=== PATIENT | female | born 1980 | race Caucasian/White ===

== ENCOUNTER 2016-11-21 16:40 | Emergency (ER) | payer OTHER ==
[2016-11-21 17:21] VITALS: BP 109/65; PULSE 74; TEMP 98.1; BMI 40.6
--- NOTE | 2016-11-21 18:02 | PDOC ---
History of Present Illness - General Chief Complaint: Pain Stated Complaint: RT HIP PAIN/SWOLLEN Time Seen by Provider: 11/21/16 17:37 History Source: Patient Exam Limitations: No Limitations - History of Present Illness Initial Comments: 11/21/16 17:59 36-year-old female presents to the ED with complaints of intermittent right hip pain worsened with ambulation and sitting. Patient states pain began 2 weeks ago and gradually has worsened. Patient denies. Injury to the affected area, radiation of pain, history of back pain, or complaints of abdominal pain. Patient denies rash of the affected area and denies any swelling. Occurred: reports: other (2 weeks) Severity: reports: mild Pain Location: reports: pelvis (rt hip) Associated Symptoms (Fall): denies symptoms Past History - Past Medical History Allergies/Adverse Reactions: Allergies Allergy/AdvReac Type Severity Reaction Status Date / Time No Known Allergies Allergy Verified 11/21/16 17:20 Home Medications: Ambulatory Orders Cyclobenzaprine HCl [Flexeril -] 10 mg PO TID #21 tablet 10/14/15 Enalapril Maleate [Vasotec -] 10 mg PO ASDIR 10/14/15 Hydroxyzine Pamoate [Vistaril -] 25 cap PO ASDIR 10/14/15 Montelukast Na [Singulair -] 10 tablet PO ASDIR 10/14/15 Albuterol 0.083% Nebulizer Terri [Ventolin 0.083% Nebulizer Soln -] 1 neb NEB Q6H #30 vial 01/04/16 Asthma: Yes HTN: Yes - Surgical History Cholecystectomy: Yes Gastric Stapling: No (GASTRIC SLEEEVE) - Psycho/Social/Smoking Cessation Hx Anxiety: No Suicidal Ideation: No Smoking History: Never smoked Hx Alcohol Use: No Drug/Substance Use Hx: No Substance Use Type: None Patient Lives Alone: No Lives with/in: spouse/SO Trauma Specific PMHX - Complaint Specific PMHX Back Injury: No Review of Systems - Review of Systems Able to Perform ROS?: Yes ABD/GI: No: Symptoms Reported : No: Symptoms Reported Musculoskeletal: Yes: Joint Pain (right hip). No: Back Pain, Joint Swelling, Muscle Weakness, Joint Stiffness Integumentary: No: Symptoms Reported Neurological: No: Symptoms reported *Physical Exam - Vital Signs Last Vital Signs Temp Pulse Resp BP Pulse Ox 98.1 F 74 20 109/65 100 11/21/16 17:18 11/21/16 17:18 11/21/16 17:18 11/21/16 17:18 11/21/16 17:18 - Physical Exam General Appearance: Yes: Nourished, Appropriately Dressed. No: Apparent Distress Vascular Pulses: Dorsalis-Pedis (R): 2+ Extremity: positive: Normal Capillary Refill, Normal Inspection, Normal Range of Motion. negative: Tender (over right posterior/ lateral aspect of iliac crest ) Integumentary: positive: Normal Color, Warm, Moist Neurologic: positive: Normal Mood/Affect, Motor Strength 5/5 (ambulatory) ED Treatment Course - RADIOLOGY Radiology Studies Ordered: Category Date Time Status HIP & PELVIS-RIGHT [RAD] Stat Radiology 11/21/16 17:46 Ordered Medical Decision Making - Medical Decision Making 11/21/16 18:02 Patient complains of intermittent right hip pain worsened with ambulation and sitting. Patient on exam had tenderness to the lateral aspect of right iliac crest. Patient had no rash, deformity, or swelling to the area. Patient ordered for x-ray and offered Motrin but states only wants the x-ray. 11/21/16 18:49 X-ray negative for acute findings. Patient with discharged home and told to take Motrin and follow up with her PCP. *DC/Admit/Observation/Transfer Diagnosis at time of Disposition: Pain of right hip - Discharge Dispostion Disposition: HOME Condition at time of disposition: Good - Referrals Referrals: Nicole Biggs MD [Primary Care Provider] - Sudhir Castro MD [Staff Physician] - - Patient Instructions Printed Discharge Instructions: Help for Hip Pain Additional Instructions: Although your x-ray showed no acute findings I recommend taking Motrin applying heat to the affected area and if pain continues greater than 1 week to follow up with referred orthopedist.
== END 2016-11-21 19:02 | disposition home or self-care (01) ==
LOC: JER 16:40 → JERFT 16:40
DX: M25.551 Pain in right hip (principal); Z98.84 Bariatric surgery status; J45.909 Unspecified asthma, uncomplicated; I10 Essential (primary) hypertension
CPT/HCPCS: 73523-TC; 99281-25

== ENCOUNTER 2017-01-06 13:48 | Emergency (ER) | payer OTHER ==
[2017-01-06 13:53] VITALS: BP 128/67; PULSE 73; TEMP 98.4; BMI 38.4
--- NOTE | 2017-01-06 14:14 | PDOC ---
History of Present Illness - General Chief Complaint: Cold Symptoms Stated Complaint: Asthma/COUGH Time Seen by Provider: 01/06/17 14:00 History Source: Patient Exam Limitations: No Limitations - History of Present Illness Initial Comments: CHIEF COMPLAINT: HISTORY OF PRESENT ILLNESS: Vital signs on arrival are within normal limits. REVIEW OF SYSTEMS: GENERAL/CONSTITUTIONAL: Subjective fever/chills. No weakness. No weight change. HEAD, EYES, EARS, NOSE AND THROAT: No change in vision. No ear pain or discharge. No sore throat. CARDIOVASCULAR: No chest pain or shortness of breath. RESPIRATORY: No cough, wheezing, or hemoptysis. GASTROINTESTINAL: See history of present illness. GENITOURINARY: No dysuria, frequency, or change in urination. MUSCULOSKELETAL: No joint or muscle swelling or pain. No neck or back pain. SKIN: No rash or easy bruising. NEUROLOGIC: No headache, vertigo, loss of consciousness, or loss of sensation. PHYSICAL EXAM: GENERAL: The patient is awake, alert, and fully oriented, in no acute distress. HEAD: Normal with no signs of trauma. ENT: Pupils equal, round and reactive to light, extraocular movements intact, sclera anicteric, conjunctiva clear. Neck supple. LUNGS: Clear to auscultation bilaterally. Normal excursion. No respiratory distress or use of accessory muscles. CV: RRR, S1/S2, no MRG. Cap refill < 2 sec. ABDOMEN: Soft, non-distended, non-tender even to deep palpation, no hepatomegaly or splenomegaly, no masses. EXTREMITIES: Normal range of motion, no edema. NEUROLOGICAL: Normal speech, normal gait. CN II-XII grossly intact. PSYCH: Normal mood, normal affect. SKIN: Warm, dry, normal turgor, no rashes or lesions noted. Past History - Past Medical History Allergies/Adverse Reactions: Allergies Allergy/AdvReac Type Severity Reaction Status Date / Time No Known Allergies Allergy Verified 01/06/17 13:53 Home Medications: Ambulatory Orders Enalapril Maleate [Vasotec -] 10 mg PO ASDIR 10/14/15 Hydroxyzine Pamoate [Vistaril -] 25 cap PO ASDIR 10/14/15 Montelukast Na [Singulair -] 10 tablet PO ASDIR 10/14/15 Asthma: Yes HTN: Yes - Surgical History Cholecystectomy: Yes Gastric Stapling: No (GASTRIC SLEEEVE) - Psycho/Social/Smoking Cessation Hx Anxiety: No Suicidal Ideation: No Smoking History: Never smoked Hx Alcohol Use: No Drug/Substance Use Hx: No Substance Use Type: None *Physical Exam - Vital Signs Last Vital Signs Temp Pulse Resp BP Pulse Ox 98.4 F 73 20 128/67 100 01/06/17 13:50 01/06/17 13:50 01/06/17 13:50 01/06/17 13:50 01/06/17 13:50 Medical Decision Making - Medical Decision Making A/P:
[2017-01-06] MEDS ORDERED: IBUPROFEN 600 MG TABLET (FP) PO ONE ×2 (14:19→14:22)
--- NOTE | 2017-01-06 14:25 | PDOC ---
History of Present Illness - General Chief Complaint: Cold Symptoms Stated Complaint: Asthma/COUGH Time Seen by Provider: 01/06/17 14:00 History Source: Patient Exam Limitations: No Limitations - History of Present Illness Initial Comments: 01/06/17 14:44 Patient here complaining of nasal congestion, sinus pressure, ear pain and mild throat pain patient with history of asthma and states has not had to use her inhaler more often but states symptoms are not improving with time. Patient states has had similar symptoms like this in the past especially this time of year and normally responds well to Zyrtec. Timing/Duration: reports: yesterday Severity: reports: mild Possible Cause: Yes: occasional episodes Associated Symptoms: reports: earache, facial pain, headache (frontal). denies : sinus infection (pressure), sore throat, wheezing Past History - Past Medical History Allergies/Adverse Reactions: Allergies Allergy/AdvReac Type Severity Reaction Status Date / Time No Known Allergies Allergy Verified 01/06/17 13:53 Home Medications: Ambulatory Orders Enalapril Maleate [Vasotec -] 10 mg PO ASDIR 10/14/15 Hydroxyzine Pamoate [Vistaril -] 25 cap PO ASDIR 10/14/15 Montelukast Na [Singulair -] 10 tablet PO ASDIR 10/14/15 Cetirizine HCl [Zyrtec -] 10 mg PO DAILY #30 tablet 01/06/17 Fluticasone Propionate [Flonase Allergy Relief] 1 ml NS BID PRN #1 spray.susp Guaifenesin [Robitussin] 10 ml PO BID PRN #120 ml 01/06/17 Asthma: Yes HTN: Yes - Surgical History Cholecystectomy: Yes Gastric Stapling: No (GASTRIC SLEEEVE) - Psycho/Social/Smoking Cessation Hx Anxiety: No Suicidal Ideation: No Smoking History: Never smoked Hx Alcohol Use: No Drug/Substance Use Hx: No Substance Use Type: None Patient Lives Alone: No Lives with/in: spouse/SO Review of Systems - Review of Systems Able to Perform ROS?: Yes Constitutional: No: Symptoms Reported HEENTM: Yes: Ear Pain, Nose Congestion. No: Difficulty Swallowing Respiratory: No: Symptoms reported Cardiac (ROS): No: Symptoms Reported : No: Symptoms Reported Musculoskeletal: No: Symptoms Reported Integumentary: No: Symptoms Reported Neurological: No: Symptoms reported Endocrine: No: Symptoms Reported Hematologic/Lymphatic: No: Symptoms Reported *Physical Exam - Vital Signs Last Vital Signs Temp Pulse Resp BP Pulse Ox 98.4 F 73 20 128/67 100 01/06/17 13:50 01/06/17 13:50 01/06/17 13:50 01/06/17 13:50 01/06/17 13:50 - Physical Exam General Appearance: Yes: Nourished, Appropriately Dressed. No: Apparent Distress HEENT: positive: EOMI, ARIC, TMs Normal (noted clear fluid behind bilateral TM) , Pharynx Normal, Nasal Congestion, Sinus Tenderness (maxillary and frontal). negative: Pale Conjunctivae Neck: positive: Supple Respiratory/Chest: positive: Lungs Clear, Normal Breath Sounds. negative: Respiratory Distress, Accessory Muscle Use Cardiovascular: positive: Regular Rhythm, Regular Rate. negative: Murmur Gastrointestinal/Abdominal: positive: Soft. negative: Tenderness Integumentary: positive: Normal Color, Warm, Moist Neurologic: positive: Motor Strength 5/5 (ambulatory) Medical Decision Making - Medical Decision Making 01/06/17 14:28 Patient complains of sinus pressure, nasal congestion, and ear pressure. Patient requesting Zyrtec refill. Patient on exam did have clear fluid to bilateral TM with sinus pressure. Patient be ordered for Flonase, Zyrtec and Robitussin as per her request. *DC/Admit/Observation/Transfer Diagnosis at time of Disposition: Allergic sinusitis - Discharge Dispostion Disposition: HOME Condition at time of disposition: Good - Prescriptions Prescriptions: Fluticasone Propionate [Flonase Allergy Relief] 1 ml NS BID PRN #1 spray.susp PRN Reason: Nasal Congestion Guaifenesin [Robitussin] 10 ml PO BID PRN #120 ml PRN Reason: Cough Cetirizine HCl [Zyrtec -] 10 mg PO DAILY #30 tablet - Referrals Referrals: Nicole Biggs MD [Primary Care Provider] - - Patient Instructions Printed Discharge Instructions: DI for Sinusitis Additional Instructions: Please take Zyrtec as prescribed. Please use Flonase also has prescribed. May use Robitussin as needed for cough. If your symptoms worsen may return to ED otherwise healthy PCP.
== END 2017-01-06 14:45 | disposition home or self-care (01) ==
LOC: JERFT 13:48
DX: J30.89 Other allergic rhinitis (principal); J45.909 Unspecified asthma, uncomplicated; I10 Essential (primary) hypertension
CPT/HCPCS: 99281-25